=== PATIENT | female | born 1985 | race Caucasian/White ===

== ENCOUNTER → 2020-08-17 | Outpatient (CLI) | payer MEDICAID ==
[~2020-08-17] MED LIST: AMIT25TA PO; ASPI1TAB59 PO; CEPH-264 PO; CHOL-5 PO; CYAN250012 PO; FERR-36 PO; HYDR25TA PO; OMEP40CA45 PO; SERT50TA PO; SUMA11AE NS
== END ==
LOC: LAB 14:00
PROVIDERS: ATTEND Nurse Anesthetist, Certified Registered
DX: Z01.812 Encounter for preprocedural laboratory examination (principal); K62.5 Hemorrhage of anus and rectum; R13.19 Other dysphagia; Z20.828 Contact with and (suspected) exposure to other viral communicable diseases
CPT/HCPCS: U0003-CS

== ENCOUNTER → 2020-08-20 | Day surgery (SDC) | payer MEDICAID ==
[~2020-08-20] MED LIST changes: -CEPH-264 PO; +IPRATRPIUM/ALBUTEROL 0.5/2.5MG 3 ML NEBU. NEB PRN; +IV RINGERS SOLUTION,LACTATED 1,000 ML IV SCH; +MIDAZOLAM HCL PF 2 MG/2 ML VIAL. IV ONE; +ONDANSETRON PF 4 MG/2 ML VIAL. IV PRN; +PROPOFOL 10,000 MCG/ML (20ML) VIAL IV ONE
[2020-08-20 11:39] LABS: U PREG PATIENT NEGATIVE (NEG)
[2020-08-20 13:16] VITALS: BP 110/71
--- NOTE | 2020-08-25 15:08 | PATHOLOGY ---
[facility] Accession Number: [id number] . 01 Material submitted: . PART A: stomach - ANTRUM GASTRITIS PART B: duodenum - DUODENUM SMALL BOWEL DIARRHEA R/O CELIAC PART C: colon - RANDOM COLON DIARRHEA . 02 Diagnosis: A. Gastric biopsies, antrum: - Congestion and focal mild chronic inflammation. . B. Duodenal biopsies: - No significant pathologic abnormalities. . C. Colonic mucosa, random colon biopsies: - No significant pathologic abnormalities. LBQ 08/25/2020 1128 Local . 02 Comment: Sections of the gastric biopsy reveal segments of gastric antral mucosa showing congestion and focal mild chronic inflammation. A properly controlled immunoperoxidase stain for Helicobacter is negative for Helicobacter organisms. . Sections of the duodenal biopsy reveal segments of duodenal mucosa. Where best oriented, the mucosal villi show no sprue-like changes or significant inflammatory changes. . Sections of the random colon biopsy reveal multiple segments of colonic mucosa containing several, focally hyperplastic, mucosal-associated lymphoid aggregates. There is no evidence of a chronic destructive colitis, lymphocytic colitis, or collagenous colitis. (JPM/db; 08/25/2020) . Special stain performed: Immunoperoxidase stain for Helicobacter on A1 . 02 Electronically signed: . Darrell Mao MD, Pathologist NPI- [id number] . 01 Gross description: . A. The specimen is received in formalin, labeled "Yun Zeeshan, antrum gastritis". Received are two segments of pale seaman soft tissue ranging in size from 0.3 to 0.6 cm in maximum dimensions. The specimen is submitted entirely in cassette A1. . B. The specimen is received in formalin, labeled "Yun Zeeshan, small bowel duodenum". Received are three segments of pale seaman soft tissue ranging in size from 0.4 to 0.6 cm in maximum dimensions. The specimen is submitted entirely in cassette B1. . C. The specimen is received in formalin, labeled "Yun Zeeshan, random colon". Received are multiple segments of pale seaman soft tissue ranging in size from 0.3 to 0.5 cm in maximum dimensions. The specimen is submitted entirely in cassette C1. (CAA; 08/24/2020) QAC/QAC 08/24/2020 0952 Local . 02 Pathologist provided ICD-10: K29.50 . 02 CPT . 666783, 900127, 507990, [id number] Specimen Comment: A courtesy copy of this report has been sent to [phone], [phone] Specimen Comment: [id number] Specimen Comment: Report sent to / DR CASTANON Performed at: 01 [facility] [address], [place] [id number] MD Yasir Lema MD Phone: [phone] Performed at: 02 [facility] [address], [place] [id number] MD Darrell Mao MD Phone: [phone]
== END | disposition home or self-care (01) ==
LOC: SURG 10:08
PROVIDERS: ATTEND Internal Medicine Gastroenterology
DX: R19.7 Diarrhea, unspecified (principal); R19.4 Change in bowel habit; K64.8 Other hemorrhoids; K62.5 Hemorrhage of anus and rectum; K52.89 Other specified noninfective gastroenteritis and colitis; R13.10 Dysphagia, unspecified; K22.2 Esophageal obstruction; K63.89 Other specified diseases of intestine; K31.89 Other diseases of stomach and duodenum; K21.9 Gastro-esophageal reflux disease without esophagitis; K29.50 Unspecified chronic gastritis without bleeding; J30.2 Other seasonal allergic rhinitis; F32.9 Major depressive disorder, single episode, unspecified; Z90.49 Acquired absence of other specified parts of digestive tract; Z98.890 Other specified postprocedural states; Z87.442 Personal history of urinary calculi; Z80.0 Family history of malignant neoplasm of digestive organs; Z79.899 Other long term (current) drug therapy
CPT/HCPCS: 43239; 43450; 45380; 81025; 88305; 88342; J2704; J7120

== ENCOUNTER 2020-08-30 10:43 | Emergency (ER) | payer MEDICAID ==
[~2020-08-30] VITALS: Ht 167.6 cm; Wt 80.4 kg
[~2020-08-30 10:43] MED LIST changes: -IPRATRPIUM/ALBUTEROL 0.5/2.5MG 3 ML NEBU. NEB PRN; -IV RINGERS SOLUTION,LACTATED 1,000 ML IV SCH; -MIDAZOLAM HCL PF 2 MG/2 ML VIAL. IV ONE; -ONDANSETRON PF 4 MG/2 ML VIAL. IV PRN; -PROPOFOL 10,000 MCG/ML (20ML) VIAL IV ONE
--- NOTE | 2020-08-30 11:14 | PHYS DOC ---
General Adult EDM: Chief Complaint: SORE THROAT HPI: HPI: 34-year-old female presents with bilateral axillary swelling and upper chest wall swelling. The patient has had prominent lymph nodes in her bilateral axilla for about a month, but again worse in the last 2 days. She is also gotten some swelling in the very base of her neck just above the bilateral clavicles. All of these areas are uncomfortable but not exceptionally painful. She has had no recent changes. She did eat some Mediterranean food that she is not used to yesterday but that is all. She denies any shortness of breath or difficulty breathing. She started amitriptyline 3 months ago, but no other medication changes. She denies fever or chills. She came here because she cannot get into her primary care physician today. Review of Systems: Review of Systems: Constitutional: Denies fever or chills Eyes: Denies change in visual acuity HENT: swelling of base of neck Respiratory: Denies cough or shortness of breath Cardiovascular: Denies chest pain or edema GI: Denies abdominal pain, nausea, vomiting, bloody stools or diarrhea : Denies dysuria Musculoskeletal: Bilateral axillary masses Integument: Denies rash Neurologic: Denies headache, focal weakness or sensory changes Endocrine: Denies polyuria or polydipsia Lymphatic: Denies swollen glands Psychiatric: Denies depression or anxiety Heart Score: Risk Factors: Risk Factors: DM, Current or recent (<one month) smoker, HTN, HLP, family history of CAD, obesity. Risk Scores: Score 0 - 3: 2.5% MACE over next 6 weeks - Discharge Home Score 4 - 6: 20.3% MACE over next 6 weeks - Admit for Clinical Observation Score 7 - 10: 72.7% MACE over next 6 weeks - Early Invasive Strategies Allergies: Allergies: Allergies Coded Allergies Type Severity Reaction Last Updated Verified No Known Drug Allergies 08/16/20 No Physical Exam: PE: Constitutional: Well developed, well nourished, no acute distress, non-toxic appearance. [] HENT: Normocephalic, atraumatic, bilateral external ears normal, oropharynx moist, no oral exudates, nose normal. [] Eyes: PERRLA, EOMI, conjunctiva normal, no discharge. [] Neck: Prominent/swelling of the base of the neck just above the clavicles bilaterally, soft. [] Cardiovascular: Heart rate regular rhythm, no murmur [] Lungs & Thorax: Bilateral breath sounds clear to auscultation. Bilateral axi llary masses 3 cm or larger, soft in density. [] Abdomen: Bowel sounds normal, soft, no tenderness, no masses, no pulsatile masses. [] Skin: Warm, dry, no erythema, no rash. [] Back: No tenderness, no CVA tenderness. [] Extremities: No tenderness, no cyanosis, no clubbing, ROM intact, no edema. [] Neurologic: Alert and oriented X 3, normal motor function, normal sensory function, no focal deficits noted. [] Psychologic: Affect normal, judgement normal, mood normal. [] EKG: EKG: [] Radiology/Procedures: Radiology/Procedures: [] Impressions: Examination: CT NECK AND CHEST W/CONTRAST History: Reason: Mass in axilla and neck, bilateral neck pain/swell. Comparison/Correlation: None Findings: Axial images of the neck and chest were obtained following IV contrast. Sagittal and coronal reformatted images were provided. Imaging was performed from the level of the mid orbits to the superior renal poles. Visualized posterior fossa is unremarkable. Pharynx is symmetric. Minimal chronic paranasal sinusitis. Parotid and submandibular glands are normal. Thyroid gland is normal. True and false cords are symmetric. The epiglottis is normal. No enlarged cervical lymph nodes. No enlarged axillary lymph nodes or masses. Trachea is normal. No enlarged mediastinal or hilar lymph nodes. There is no infiltrate. No suspicious pulmonary nodule or effusion. Cholecystectomy noted. Partially visualized upper abdomen is unremarkable. Bony structures are unremarkable for the patient's age. Impression: No masses, enlarged lymph nodes, or other suspicious process. Unremarkable exam. Electronically signed by: Luis Angel Scott MD (08/30/2020 1:22 PM) [facility] DICTATED AND SIGNED BY: LUIS ANGEL SCOTT MD DATE: 08/30/20 1322 CC: ROZ MORALES DO; ASHWIN CASTANON ~ Course & Med Decision Making: Course & Med Decision Making Pertinent Labs and Imaging studies reviewed. (See chart for details) The patient's labs are unremarkable. Her CT scan does not show any abnormalities of the lymph nodes in the neck or the axilla. This is interesting since I can palpate fullness in these areas. I reviewed the CT myself and I can see the area of fullness in her axillas and it does appear to be just subcutaneous fullness. There is no distinction of the area versus the whitifeld rrounding tissue. She does have a urinary tract infection. I will give her a gram of Rocephin in the emergency room and Keflex for home. She is stable for discharge at this time. [] Dragon Disclaimer: Dragon Disclaimer: This electronic medical record was generated, in whole or in part, using a voice recognition dictation system. Departure Departure: Impression: Primary Impression: Soft tissue complaint Additional Impression: UTI (urinary tract infection) Qualified Codes: N30.01 - Acute cystitis with hematuria Disposition: HOME SELF CARE/HOMELESS Condition: STABLE Referrals: ASHWIN CASTANON (PCP) Patient Instructions: Urinary Tract Infection, [id number] Scripts Cephalexin (KEFLEX) 500 Mg Capsule 1 CAP PO TID for UTI for 5 Days, #15 CAP 0 Refills Prov: ROZ MORALES DO 08/30/20 ROZ MORALES DO Aug 30, 2020 11:14
[2020-08-30] MEDS ORDERED: CONTRAST GIVEN. MC PRN (11:15)
[2020-08-30] MEDS ORDERED: IOHEXOL 300 MG/ML 75 ML VIAL. IV ONE (11:15)
[2020-08-30 11:40] LABS: BILIRUBIN,URINE NEG (NEG); CLARITY,URINE HAZY; COLOR,URINE YELLOW; GLUCOSE,URINE NEG (NEG); NITRITE,URINE NEG (NEG); UROBILINOGEN,URINE 0.2 mg/dL (0.2 mg/dL)
[2020-08-30 11:41] LABS: BACTERIA,URINE MOD /HPF (0-FEW); SQUAMOUS EPITHELIAL CELL,UR FEW /LPF; WBC,URINE 20-40 /HPF (0-4)
[2020-08-30 11:55] LABS: BASO # 0.1 x10^3/uL (0.0-0.2); BASO % 1 % (0-3); EOS # 0.1 x10^3/uL (0.0-0.7); EOS % 1 % (0-3); HEMATOCRIT 37.5 % (36.0-47.0); HEMOGLOBIN 12.4 g/dL (12.0-15.5); LYMPH % 27 % (24-48); MEAN CORPUSCULAR HEMOGLOBIN 29 pg (25-35); MEAN CORPUSCULAR HGB CONC 33 g/dL (31-37); MEAN CORPUSCULAR VOLUME 86 fL (79-100); MONO # 0.3 x10^3/uL (0.0-1.1); MONO % 4 % (0-9); NEUT # 5.1 x10^3uL (1.8-7.7); NEUT % 67 % (31-73); PLATELET COUNT 394 x10^3/uL (140-400); RED BLOOD COUNT 4.35 x10^6/uL (3.50-5.40); RED CELL DISTRIBUTION WIDTH 13.3 % (11.5-14.5); WHITE BLOOD COUNT 7.6 x10^3/uL (4.0-11.0)
[2020-08-30 12:08] LABS: CALCIUM 8.7 mg/dL (8.5-10.1); CREATININE 0.8 mg/dL (0.6-1.0); GFR 82.1; POTASSIUM 3.8 mmol/L (3.5-5.1)
[2020-08-30 12:14] LABS: ALBUMIN 3.6 g/dL (3.4-5.0); ALBUMIN/GLOBULIN RATIO 0.8 (1.0-1.7); TOTAL BILIRUBIN 0.5 mg/dL (0.2-1.0); TOTAL PROTEIN 7.9 g/dL (6.4-8.2)
--- NOTE | 2020-08-30 13:25 | RAD ---
Examination: CT NECK AND CHEST W/CONTRAST History: Reason: Mass in axilla and neck, bilateral neck pain/swell. Comparison/Correlation: None Findings: Axial images of the neck and chest were obtained following IV contrast. Sagittal and coronal reformatted images were provided. Imaging was performed from the level of the mid orbits to the superior renal poles. Visualized posterior fossa is unremarkable. Pharynx is symmetric. Minimal chronic paranasal sinusitis. Parotid and submandibular glands are normal. Thyroid gland is normal. True and false cords are symmetric. The epiglottis is normal. No enlarged cervical lymph nodes. No enlarged axillary lymph nodes or masses. Trachea is normal. No enlarged mediastinal or hilar lymph nodes. There is no infiltrate. No suspicious pulmonary nodule or effusion. Cholecystectomy noted. Partially visualized upper abdomen is unremarkable. Bony structures are unremarkable for the patient's age. Impression: No masses, enlarged lymph nodes, or other suspicious process. Unremarkable exam. Electronically signed by: Soren Covarrubias MD (08/30/2020 1:22 PM) [facility]
[2020-08-30] MEDS ORDERED: CEPH-264 PO (13:55)
[2020-08-30] MEDS ORDERED: cefTRIAXone SODIUM 1 GM VIAL ONE (13:59)
[2020-08-30 14:07] VITALS: BP 126/81
[2020-08-30 14:39] LABS: MONONUCLEOSIS PATIENT NEGATIVE (NEGATIVE)
== END 2020-08-30 14:35 | disposition home or self-care (01) ==
LOC: ER 10:43
DX: N30.01 Acute cystitis with hematuria (principal); R22.33 Localized swelling, mass and lump, upper limb, bilateral; R22.2 Localized swelling, mass and lump, trunk; R22.1 Localized swelling, mass and lump, neck
CPT/HCPCS: 36415; 71260; 72132; 80053; 81001; 81025; 85025; 86308; 87086; 96365; 99285; J0696; Q9967

== ENCOUNTER → 2021-05-02 | Outpatient (CLI) | payer MEDICAID ==
[~2021-05-02] MED LIST changes: +CEPH-264 PO; +IOHEXOL 240 MG/ML 50ML VIAL. ONE; +IOHEXOL 300 MG/ML 75 ML VIAL. IV ONE; -OMEP40CA45 PO; +OMEP40CA7 PO; -SUMA11AE NS; +SUMA11AE2 NS
--- NOTE | 2021-05-02 15:27 | RAD ---
INDICATION: Reason: COLICKY RUQ ABD PAIN COMPARISON: None. TECHNIQUE: Axial CT images obtained through the abdomen and pelvis with contrast. One or more of the following individualized dose reduction techniques were utilized for this examinat ion: 1. Automated exposure control; 2. Adjustment of the mA and/or kV according to patient size; 3 . Use of iterative reconstruction technique. FINDINGS: Abdominal aorta is not aneurysmal. Fat-containing left greater than right inguinal hernia. Postcholecystectomy changes. No peripancreatic fluid collection. Spleen unremarkable. Mild prominence right renal pelvis. Urinary bladder is partially distended. 2 mm nonobstructive right renal stone. Uterus is visualized. Small free fluid in the pelvis. No dilated loops of bowel to suggest obstruction. Degenerative changes of the spine. IMPRESSION: * No evidence of bowel obstruction. * Mild distention of the right renal pelvis without radiopaque obstructive ureter stone identified. Electronically signed by: Sherif Mcgrath MD (05/02/2021 3:24 PM) [id number]
== END ==
LOC: CT 14:11
PROVIDERS: ATTEND Family Medicine
DX: K62.89 Other specified diseases of anus and rectum (principal); M62.81 Muscle weakness (generalized); Z90.49 Acquired absence of other specified parts of digestive tract
CPT/HCPCS: 74177; Q9967

== ENCOUNTER 2021-05-19 21:00 | Emergency (ER) | payer MEDICAID ==
[~2021-05-19] VITALS: Ht 167.6 cm; Wt 80.9 kg
[~2021-05-19 21:00] MED LIST changes: -IOHEXOL 240 MG/ML 50ML VIAL. ONE; -IOHEXOL 300 MG/ML 75 ML VIAL. IV ONE
[2021-05-19] MEDS ORDERED: ONDANSETRON PF 4 MG/2 ML VIAL. ONE (21:37)
[2021-05-19] MEDS: ONDANSETRON PF 4 MG/2 ML VIAL. IVP ONE (21:39)
--- NOTE | 2021-05-19 21:43 | PHYS DOC ---
Past History Past Medical History: Fibromyalgia, IBS, Migraines Past Surgical History: Appendectomy, Cholecystectomy, Other Additional Past Surgical Histo: LEFT KNEE Alcohol Use: Occasionally Adult General HPI HPI Patient is a 35-year-old female with a past medical history significant for IBS and fibromyalgia who presents to the emergency department with a chief complaint of right-sided/right flank abdominal pain. States it has been intermittent over the last month, at its worse it is 7 out of 10, sharp in nature with some radiation from her low back around to her front. Denies any recent traumas, travels, fevers, chest pain, shortness of breath, nausea, vomiting, dysuria, hematuria or blood in the stool. States she seen her primary care physician for this but no source has been found. States he is eating and drinking normally for her. States she is making urine and stool normally for her with no blood in either. Review of Systems Review of Systems Review of systems otherwise unremarkable except noted in HPI Current Medications Current Medications Current Medications Medications (Trade) Dose Ordered Sig/Rafaela Start Time Stop Time Status Last Admin Dose Admin Fentanyl Citrate (Fentanyl 2ml Vial) 50 mcg 1X ONCE 05/19/21 21:30 05/19/21 21:31 DC 05/19/21 21:39 50 MCG Ondansetron HCl (Zofran) 4 mg STK-MED ONCE 05/19/21 21:37 05/19/21 21:37 DC Allergies Allergies Allergies Coded Allergies Type Severity Reaction Last Updated Verified No Known Drug Allergies 08/16/20 No Physical Exam Physical Exam Constitutional: Well developed, well nourished, no acute distress, non-toxic appearance. [] HENT: Normocephalic, atraumatic, bilateral external ears normal, oropharynx moist, no oral exudates, nose normal. [] Eyes: conjunctiva normal, no discharge. [] Neck: Normal range of motion, no tenderness, supple, no stridor. [] Cardiovascular:Heart rate regular rhythm, no murmur [] Lungs & Thorax: Bilateral breath sounds clear to auscultation [] Abdomen: Bowel sounds normal, soft, no tenderness, no masses, no pulsatile masses. [] Skin: Warm, dry, no erythema, no rash. [] Back: No tenderness, right CVA tenderness. [] Extremities: No tenderness, no cyanosis, no clubbing, ROM intact, no edema. [] Neurologic: Alert and oriented X 3, normal motor function, normal sensory function, able to sit, stand and walk without issue, no focal deficits noted. [] Psychologic: Affect normal, judgement normal, mood normal. [] Current Patient Data Vital Signs Vital Signs Date Time Temp Pulse Resp B/P (MAP) Pulse Ox O2 Delivery O2 Flow Rate FiO2 05/19/21 21:39 18 97 Room Air Lab Results Laboratory Tests Test 05/19/21 21:40 POC Urine HCG, Qualitative hcg negative (Negative) EKG EKG [] Radiology/Procedures Radiology/Procedures [] Exam: CT of abdomen and pelvis without contrast INDICATION: Right flank TECHNIQUE: Sequential axial images through the abdomen and pelvis obtained without IV contrast. Sagittal and coronal reformatted images were reconstructed from the axial data and reviewed. Exposure: One or more of the following in the visualized dose reduction techniq ues were utilized for this examination: 1. Automated exposure control 2. Adjustment of the MA and/or KV according to patient size 3. Use of iterative of reconstructive technique Comparisons: None FINDINGS: Heart size is normal. No pericardial effusion. Strandy opacities at dependent portion lungs likely representing atelectasis. No pleural effusion. Evaluation of solid organs is limited secondary to noncontrast technique. Liver, spleen, pancreas and adrenals are unremarkable. Gallbladder surgically ab sent. Nonobstructing right renal calculi are noted. No perinephric inflammation or hydronephrosis. No ureteral calculi are identified. Bladder is partially distended and not well evaluated. Uterus is nonenlarged. No abnormal adnexal mass. Large and small bowel are unremarkable. Appendix is is not identified. No free intra-abdominal air or fluid. No obstruction. Abdominal aorta has a normal course and caliber. No enlarged intra-abdominal lymph nodes are identified. No suspicious osseous lesions or acute fractures. IMPRESSION: Nonobstructing right renal calculi. No ureteral calculi or evidence for obstructive uropathy. Electronically signed by: Torito Diaz MD (05/19/2021 10:27 PM) [facility] Heart Score C/O Chest Pain: No Risk Factors: Risk Factors: DM, Current or recent (<one month) smoker, HTN, HLP, family history of CAD, obesity. Risk Scores: Risk Factors: DM, Current or recent (<one month) smoker, HTN, HLP, family hist ory of CAD, obesity. Course & Med Decision Making Course & Med Decision Making Patient a 35-year-old female presents with right flank pain Vital signs initially notable for hypertension which resolved in the ED. Physical exam noted above. Patient placed on monitor with IV access established. Given fentanyl for pain. Given Zofran for nausea. Laboratory analysis not concerning. Urinalysis not concerning. Negative . Imaging notable for a nonobstructing right renal calculi with no ureteral calculi or evidence of obstructive uropathy. Pain and nausea medications provided relief. Discussed all findings with patient and advised to follow-up with primary care in the morning. Advised on pain management at home. Gave prescription of Zofran. Gave return precautions to the ED. Patient grateful, verbalized understanding and agreed with plan of discharge. Dragon Disclaimer Dragon Disclaimer This electronic medical record was generated, in whole or in part, using a voice recognition dictation system. Departure Departure: Impression: Primary Impression: Flank pain Additional Impression: Renal calculi Disposition: HOME / SELF CARE / HOMELESS Condition: GOOD Referrals: ASHWIN CASTANON (PCP) Patient Instructions: Diet for Kidney Stones, Kidney Stones Additional Instructions: Thank you for coming into the emergency department tonight and allowing us to take care of you. Please read all the attached information very carefully to go back over what we discussed. You can begin to use Tylenol, ibuprofen and Benadryl as needed at home for pain control. You are given a prescription for nausea medicine, Zofran. Please use as prescribed. Please follow-up in the morning with your primary care physician to update on your ED visit and set up a follow-up as soon as possible. Please come back to the ED with new or concerning symptoms as discussed. Scripts Ondansetron Hcl (ZOFRAN) 4 Mg Tablet 1 TAB PO PRN Q6HRS PRN for NAUSEA, #20 TAB Prov: MARLEY GRIDER MD 05/19/21 Problem Qualifiers MARLEY GRIDER MD May 19, 2021 21:43
[2021-05-19 22:01] LABS: BASO # 0.1 x10^3/uL (0.0-0.2); BASO % 1 % (0-3); EOS # 0.2 x10^3/uL (0.0-0.7); EOS % 2 % (0-3); HEMATOCRIT 36.3 % (36.0-47.0); HEMOGLOBIN 12.2 g/dL (12.0-15.5); LYMPH # 2.9 x10^3/uL (1.0-4.8); LYMPH % 29 % (24-48); MEAN CORPUSCULAR HEMOGLOBIN 29 pg (25-35); MEAN CORPUSCULAR HGB CONC 34 g/dL (31-37); MEAN CORPUSCULAR VOLUME 88 fL (79-100); MONO # 0.4 x10^3/uL (0.0-1.1); MONO % 4 % (0-9); NEUT # 6.5 x10^3uL (1.8-7.7); NEUT % 64 % (31-73); PLATELET COUNT 433 x10^3/uL (140-400); RED BLOOD COUNT 4.15 x10^6/uL (3.50-5.40); RED CELL DISTRIBUTION WIDTH 13.5 % (11.5-14.5); WHITE BLOOD COUNT 10.1 x10^3/uL (4.0-11.0)
[2021-05-19 22:09] LABS: CALCIUM 8.5 mg/dL (8.5-10.1); CREATININE 0.7 mg/dL (0.6-1.0); GFR 95.2; POTASSIUM 4.2 mmol/L (3.5-5.1)
[2021-05-19 22:13] LABS: ALBUMIN 4.2 g/dL (3.4-5.0); ALBUMIN/GLOBULIN RATIO 1.3 (1.0-1.7); TOTAL BILIRUBIN 0.4 mg/dL (0.2-1.0); TOTAL PROTEIN 7.5 g/dL (6.4-8.2)
[2021-05-19 22:15] LABS: BILIRUBIN,URINE NEG (NEG); CLARITY,URINE CLEAR; COLOR,URINE YELLOW; GLUCOSE,URINE NEG (NEG)
[2021-05-19 22:16] LABS: BACTERIA,URINE 0 /HPF (0-FEW); NITRITE,URINE NEG (NEG); RBC,URINE 0 /HPF (0-2); SQUAMOUS EPITHELIAL CELL,UR OCC /LPF; UROBILINOGEN,URINE 0.2 mg/dL (0.2 mg/dL); WBC,URINE RARE /HPF (0-4)
--- NOTE | 2021-05-19 22:29 | RAD ---
Exam: CT of abdomen and pelvis without contrast INDICATION: Right flank TECHNIQUE: Sequential axial images through the abdomen and pelvis obtained without IV contrast. Sagit scotty and coronal reformatted images were reconstructed from the axial data and reviewed. Exposure: One or more of the following in the visualized dose reduction techniques were utilized for this examination: 1. Automated exposure control 2. Adjustment of the MA and/or KV according to patient size 3. Use of iterative of reconstructive technique Comparisons: None FINDINGS: Heart size is normal. No pericardial effusion. Strandy opacities at dependent portion lungs likely re presenting atelectasis. No pleural effusion. Evaluation of solid organs is limited secondary to nonco ntrast technique. Liver, spleen, pancreas and adrenals are unremarkable. Gallbladder surgically absent. Nonobstructing right renal calculi are noted. No perinephric inflammation or hydronephrosis. No urete ral calculi are identified. Bladder is partially distended and not well evaluated. Uterus is nonenlarged. No abnormal adnexal mas s. Large and small bowel are unremarkable. Appendix is is not identified. No free intra-abdominal air or fluid. No obstruction. Abdominal aorta has a normal course and caliber. No enlarged intra-abdominal lymph nodes are identified. No suspicious osseous lesions or acute fractures. IMPRESSION: Nonobstructing right renal calculi. No ureteral calculi or evidence for obstructive uropathy. Electronically signed by: Torito Diaz MD (05/19/2021 10:27 PM) [facility]
[2021-05-19] MEDS ORDERED: ONDA4TAB7 PO (22:46)
[2021-05-19 23:00] VITALS: BP 114/81
[2021-05-19] MEDS: HYDROcodone/APAP 5/325MG 1 TAB TABLET PO ONE (23:10)
== END 2021-05-19 23:13 | disposition home or self-care (01) ==
LOC: ER 21:00
DX: N20.0 Calculus of kidney (principal); Z90.49 Acquired absence of other specified parts of digestive tract
CPT/HCPCS: 36415; 74176; 80053; 81001; 81025; 83690; 85025; 96374; 96375; 99285; J2405; J3010